=== PATIENT | male | born 1965 | race Caucasian/White ===

== ENCOUNTER 2016-04-11 20:42 | Emergency (ER) | payer BC ==
[2016-04-11 21:36] VITALS: PULSE 78
[2016-04-11] MEDS ORDERED: KETOROLAC 30 MG/ML 1 ML VIAL IVP STA (21:41)
--- NOTE | 2016-04-11 21:44 | ED ---
General Adult HPI - General Chief complaint: Back Pain/Injury Stated complaint: Back Pain Time Seen by Provider: 04/11/16 21:33 Source: patient, RN notes reviewed Mode of arrival: ambulatory Limitations: no limitations - History of Present Illness Initial comments: Patient is a pleasant 50-year-old male presenting to the emergency Department with left thoracic back discomfort. Onset of symptoms was just a couple of hours ago. Patient does have a recent diagnosis of bronchitis. Patient just finished antibiotics and steroids for this today. Patient did have similar symptoms around a year ago and was diagnosed with pleurisy at that time. Patient's discomfort is beneath the left scapula. Discomfort is positional and also increases with deep breaths. Patient denies any dyspnea. No anterior chest discomfort. No leg pain or leg swelling. No fever. - Related Data Home Medications Medication Instructions Recorded Confirmed Citalopram Hydrobromide [CeleXA] 40 mg PO DAILY 06/08/15 04/11/16 Fluticasone/Salmeterol [Advair 1 inhalation PO RT-BID 06/08/15 04/11/16 250-50 Diskus] Montelukast [Singulair] 10 mg PO DAILY 06/08/15 04/11/16 Albuterol Inhaler [Ventolin Hfa 2 puff INHALATION RT-Q6H PRN 06/09/15 04/11/16 Inhaler] Fluticasone Nasal [place] [Flonase 1 spray EA NOSTRIL DAILY PRN 06/09/15 04/11/16 Nasal [place]] Ipratropium Nebulized [Atrovent 0.5 mg INHALATION RT-Q6H PRN 06/09/15 04/11/16 Nebulized] Omeprazole [PriLOSEC] 20 mg PO AC-BRKFST 06/09/15 04/11/16 Previous Rx's Medication Instructions Recorded Ipratropium-Albuterol Nebulize 3 ml INHALATION RT-QID #120 06/11/15 [Duoneb 0.5 mg-3 mg/3 ml Soln] ampul.neb predniSONE 0 mg PO DIRECTED #30 tab 06/11/15 Allergies Allergy/AdvReac Type Severity Reaction Status Date / Time No Known Allergies Allergy Verified 06/09/15 13:22 Review of Systems ROS Statement: Those systems with pertinent positive or pertinent negative responses have been documented in the HPI. ROS Other: All systems not noted in ROS Statement are negative. Constitutional: Denies: fever Eyes: Denies: eye pain ENT: Denies: ear pain Respiratory: Reports: cough. 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 Absent: chest wall tenderness Cardiovascular Exam: Present: regular rate, normal rhythm GI/Abdominal exam: Present: soft. Absent: tenderness Extremities exam: Present: normal inspection. Absent: pedal edema, calf tenderness Back exam: Present: tenderness (Mild tenderness beneath the left scapula and above the left CVA.) Neurological exam: Present: alert Psychiatric exam: Present: normal affect, normal mood Skin exam: Absent: rash Course Vital Signs 04/11/16 04/11/16 20:43 21:35 Temperature 97.3 F L 97.9 F Pulse Rate 83 78 Respiratory 18 18 Rate Blood Pressure 185/107 148/72 O2 Sat by Pulse 100 98 Oximetry Medical Decision Making - Medical Decision Making Patient examined and resting comfortably in bed. Patient symptom-free following Toradol. comfortable discharge. Patient updated on results and need for follow-up. - Lab Data Result diagrams: 04/11/16 23:00 04/11/16 23:00 Lab Results 04/11/16 04/11/16 04/11/16 Range/Units 23:00 23:00 23:00 WBC 13.8 H (3.8-10.6) k/uL RBC 5.18 (4.30-5.90) m/uL Hgb 14.5 (13.0-17.5) gm/dL Hct 42.7 (39.0-53.0) % MCV 82.4 (80.0-100.0) fL MCH 27.9 (25.0-35.0) pg MCHC 33.9 (31.0-37.0) g/dL RDW 13.2 (11.5-15.5) % Plt Count 287 (150-450) k/uL Neutrophils % 62 % Lymphocytes % 26 % Monocytes % 10 % Eosinophils % 1 % Basophils % 1 % Neutrophils # 8.5 H (1.3-7.7) k/uL Lymphocytes # 3.6 (1.0-4.8) k/uL Monocytes # 1.3 H (0-1.0) k/uL Eosinophils # 0.1 (0-0.7) k/uL Basophils # 0.1 (0-0.2) k/uL PT 10.3 (9.0-12.0) sec INR 1.0 (<1.1) APTT 21.6 L (22.0-30.0) sec D-Dimer <0.17 (<0.60) mg/L FEU Sodium 142 (137-145) mmol/L Potassium 4.0 (3.5-5.1) mmol/L Chloride 104 (98-107) mmol/L Carbon Dioxide 28 (22-30) mmol/L Anion Gap 10 mmol/L BUN 28 H (9-20) mg/dL Creatinine 0.80 (0.66-1.25) mg/dL Est GFR (MDRD) Af Amer >60 (>60 ml/min/1.73 sqM) Est GFR (MDRD) Non-Af >60 (>60 ml/min/1.73 sqM) Glucose 107 H (74-99) mg/dL Calcium 9.8 (8.4-10.2) mg/dL Total Bilirubin 0.5 (0.2-1.3) mg/dL AST 32 (17-59) U/L ALT 61 (21-72) U/L Alkaline Phosphatase 58 (38-126) U/L Total Protein 6.4 (6.3-8.2) g/dL Albumin 3.9 (3.5-5.0) g/dL - Radiology Data Radiology results: image reviewed (Chest x-ray shows no acute process) Disposition Clinical Impression: Pleurisy Disposition: HOME SELF-CARE Condition: Stable Instructions: Pleurisy (ED), Thoracic Back Strain (ED) Additional Instructions: Please follow-up with your doctor in the beginning of the week. Return for difficulty breathing, increased pain, fevers, worsening symptoms or other concerns. Referrals: Colton Cortez MD [Primary Care Provider] - 1-2 days
--- NOTE | 2016-04-11 22:51 | XR ---
EXAMINATION TYPE: XR chest 2V DATE OF EXAM: 04/11/2016 10:44 PM COMPARISON: 06/09/2015 HISTORY: Bronchitis. Chest pain TECHNIQUE: Frontal and lateral views of the chest are obtained. FINDINGS: Heart and mediastinum are normal. Lungs are clear. Diaphragm is normal. Bony thorax and so ft tissues appear normal. IMPRESSION: Normal chest. There is improved inspiration compared to old exam. There is clearing of m ild atelectasis at right lung base compared to old exam.
[2016-04-11 23:06] LABS: Basophils # (A) 0.1 k/uL (0-0.2); Basophils % (A) 1 %; CHCM 35.4; Eosinophils # (A) 0.1 k/uL (0-0.7); Eosinophils % (A) 1 %; HCT 42.7 % (39.0-53.0); HDW 2.71; HGB 14.5 gm/dL (13.0-17.5); Luc # (Auto) 0.15; Luc % (Auto) 1; Lymphocytes # (A) 3.6 k/uL (1.0-4.8); Lymphocytes % (A) 26 %; MCH 27.9 pg (25.0-35.0); MCHC 33.9 g/dL (31.0-37.0); MCV 82.4 fL (80.0-100.0); Mean Platelet Volume 7.2; Monocytes # (A) 1.3 k/uL (0-1.0); Monocytes % (A) 10 %; Neutrophils # (A) 8.5 k/uL (1.3-7.7); Neutrophils % (A) 62 %; RBC 5.18 m/uL (4.30-5.90); RDW 13.2 % (11.5-15.5); WBC 13.8 k/uL (3.8-10.6); WBC (Perox) 14.16
[2016-04-11 23:15] LABS: ALT 61 U/L (21-72); AST 32 U/L (17-59); Alkaline Phosphatase 58 U/L (38-126); Anion Gap 10 mmol/L; Blood Urea Nitrogen 28 mg/dL (9-20); Calcium 9.8 mg/dL (8.4-10.2); Carbon Dioxide 28 mmol/L (22-30); Chloride 104 mmol/L (98-107); Glucose 107 mg/dL (74-99); Non-African American GFR(MDRD) >60 (>60 ml/min/1.73 sqM); Sodium 142 mmol/L (137-145); Total Bilirubin 0.5 mg/dL (0.2-1.3); Total Protein 6.4 g/dL (6.3-8.2)
[2016-04-11 23:19] LABS: Prothrombin Time 10.3 sec (9.0-12.0)
[2016-04-11 23:30] LABS: Partial Thromboplastin Time 21.6 sec (22.0-30.0)
[2016-04-12 00:08] VITALS: BP 128/78; RESP 20; TEMP 36.8
== END 2016-04-12 00:07 | disposition home or self-care (01) ==
LOC: EC 20:42
DX: R09.1 Pleurisy (principal); Z79.899 Other long term (current) drug therapy; F32.9 Major depressive disorder, single episode, unspecified; J45.909 Unspecified asthma, uncomplicated; Z87.891 Personal history of nicotine dependence; Z79.51 Long term (current) use of inhaled steroids
CPT/HCPCS: 36415; 85379; 80053; 85025; 85610; 85730; 71020; 99283; 96374; J1885

== ENCOUNTER 2017-05-31 17:41 | Emergency (ER) | payer BC ==
[2017-05-31 18:21] VITALS: BP 139/86; PULSE 89; RESP 20; TEMP 97.9
[2017-05-31] MEDS ORDERED: DIPH,PERTUS(ACELL)TETVAC-LF 0.5 ML VIAL IM ONE (18:28)
--- NOTE | 2017-05-31 18:30 | ED ---
Wound/Laceration HPI - General Chief Complaint: Wound/Laceration Stated Complaint: RT PINKIE FINGER INJURY Time Seen by Provider: 05/31/17 18:27 Source: patient, RN notes reviewed Mode of arrival: ambulatory Limitations: no limitations - History of Present Illness Initial Comments: 52-year-old male presents emergency Department chief complaint right hand fifth digit injury. Patient states his playing tennis states that he went over to drink water going up the steps she tripped falling forward. Patient states they he felt some discomfort to his fifth digit no other laceration. Patient feels that he can see the bone. Patient denies any decreased range of motion. Denies any paresthesias. Patient is unsure when his last tetanus was. Denies any other injuries no head injury no loss conscious. - Related Data Home Medications Medication Instructions Recorded Confirmed Citalopram Hydrobromide [CeleXA] 40 mg PO DAILY 06/08/15 04/11/16 Fluticasone/Salmeterol [Advair 1 inhalation PO RT-BID 06/08/15 04/11/16 250-50 Diskus] Montelukast [Singulair] 10 mg PO DAILY 06/08/15 04/11/16 Albuterol Inhaler [Ventolin Hfa 2 puff INHALATION RT-Q6H PRN 06/09/15 04/11/16 Inhaler] Fluticasone Nasal [place] [Flonase 1 spray EA NOSTRIL DAILY PRN 06/09/15 04/11/16 Nasal [place]] Ipratropium Nebulized [Atrovent 0.5 mg INHALATION RT-Q6H PRN 06/09/15 04/11/16 Nebulized] Omeprazole [PriLOSEC] 20 mg PO AC-BRKFST 06/09/15 04/11/16 Previous Rx's Medication Instructions Recorded Ipratropium-Albuterol Nebulize 3 ml INHALATION RT-QID #120 06/11/15 [Duoneb 0.5 mg-3 mg/3 ml Soln] ampul.neb predniSONE 0 mg PO DIRECTED #30 tab 06/11/15 Allergies Allergy/AdvReac Type Severity Reaction Status Date / Time No Known Allergies Allergy Verified 05/31/17 18:20 Review of Systems ROS Statement: Those systems with pertinent positive or pertinent negative responses have been documented in the HPI. ROS Other: All systems not noted in ROS Statement are negative. 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 Absent: tenderness, meningismus, lymphadenopathy Respiratory exam: Present: normal lung sounds bilaterally. Absent: respiratory distress, wheezes, rales, rhonchi, stridor Cardiovascular Exam: Present: regular rate, normal rhythm, normal heart sounds. Absent: systolic murmur, diastolic murmur, rubs, gallop, clicks Extremities exam: Present: other (Right hand fifth digit there is a laceration on the volar surface patient has full range of motion neurovascular intact there is mild active bleeding) Skin exam: Present: warm, dry Course Vital Signs 05/31/17 18:18 Temperature 97.9 F Pulse Rate 89 Respiratory 20 Rate Blood Pressure 139/86 O2 Sat by Pulse 97 Oximetry Procedures - Laceration Laceration #1 Consent Obtained: verbal consent Indication: laceration Site: hand (Right hand fifth digit) Size (cm): 2 Description: linear Depth: simple, single layer Anesthetic Used: lidocaine 1% Anesthesia Technique: local infiltration Amount (mls): 3 Pre-repair: wound explored, irrigated extensively, deep structures intact Type of Sutures: nylon Size of Sutures: 4-0 Number of Sutures: 5 Technique: simple, interrupted Patient Tolerated Procedure: well, no complications Medical Decision Making - Medical Decision Making 52-year-old male presented to harm chief complaint laceration to his finger. X- ray shows no acute abnormality. Patient's laceration was closed using 5 sutures. Patient tolerated well no compilations. Patient has full range of motion full-strength. Patient's tetanus was updated Disposition Clinical Impression: Laceration of finger of right hand Disposition: HOME SELF-CARE Condition: Stable Instructions: Finger Laceration (ED) Additional Instructions: Have sutures removed in 10 days.Please return to the Emergency Department if symptoms worsen or any other concerns. Referrals: None,Stated [Primary Care Provider] - 1-2 days Time of Disposition: 19:15
--- NOTE | 2017-05-31 19:02 | XR ---
EXAMINATION TYPE: XR finger RT DATE OF EXAM: 05/31/2017 COMPARISON: NONE HISTORY: Laceration and pain TECHNIQUE: 3 views FINDINGS: There is mild spurring at the DIP joint of the little finger. I see no fracture nor disloca tion. There is no sign of a foreign body. IMPRESSION: No acute abnormality of the right middle finger.
== END 2017-05-31 19:25 | disposition home or self-care (01) ==
LOC: EC 17:41
DX: S61.216A Laceration without foreign body of right little finger without damage to nail, initial encounter (principal); J45.909 Unspecified asthma, uncomplicated; F32.9 Major depressive disorder, single episode, unspecified; Z87.891 Personal history of nicotine dependence; Z79.51 Long term (current) use of inhaled steroids; Z79.899 Other long term (current) drug therapy; Z23 Encounter for immunization; W01.0XXA Fall on same level from slipping, tripping and stumbling without subsequent striking against object, initial encounter; Y93.89 Activity, other specified; Y92.008 Other place in unspecified non-institutional (private) residence as the place of occurrence of the external cause
CPT/HCPCS: 12001; 90471; 90715; 99283

== ENCOUNTER → 2020-10-10 | Outpatient (CLI) | payer BC ==
[2020-10-10 11:24] LABS: HCT 47.7 % (39.6-50.0); HGB 15.6 g/dL (13.0-17.0); MCH 27.9 pg (27.0-32.0); MCHC 32.7 g/dL (32.0-37.0); MCV 85.2 fL (80.0-97.0); Mean Platelet Volume 10.4 fL (9.5-12.2); Platelet Count 291 X 10*3/uL (140-440); RDW 13.3 % (11.5-14.5); WBC 5.45 X 10*3/uL (4.50-10.00)
[2020-10-10 15:40] LABS: African American GFR (CKD) 77.9 (60.0-200.0); Albumin 4.6 g/dL (3.80-4.90); Albumin/Globulin Ratio 1.92 (1.60-3.17); Anion Gap 8.6 mmol/L (4.00-12.00); BUN/Creat Ratio 17.5 Ratio (12.00-20.00); Calcium 9.8 mg/dL (8.7-10.3); Carbon Dioxide 25.4 mmol/L (21.6-31.8); Chol/HDL Ratio 6.37; Globulin 2.4 g/dL (1.6-3.3); LDL Cholesterol,Calculated 162.6 mg/dL (0.0-131.0); Non-African American GFR(CKD) 67.2 (60.0-200.0); Potassium 4.6 mmol/L (3.5-5.5); VLDL Calculation 25.4 mg/dL (5.00-40.00)
[2020-10-10 15:51] LABS: Folate, Serum 9.1 ng/mL; Prostate Specific Antigen 0.9 ng/mL (0.0-3.5)
== END | disposition home or self-care (01) ==
LOC: LABWHC1 07:32
PROVIDERS: ATTEND Internal Medicine
DX: R53.83 Other fatigue (principal); E66.9 Obesity, unspecified; F52.21 Male erectile disorder; E55.9 Vitamin D deficiency, unspecified
CPT/HCPCS: 36415; 80053; 80061; 82306; 82607; 82746; 84153; 84402; 84403; 84443; 85027

== ENCOUNTER → 2021-03-20 | Outpatient (CLI) | payer BC ==
[~2021-03-20] MED LIST: CASIRIVIMAB (REGN10933) (EUA) 600 MG, IMDEVIMAB (REGN10987) (EUA) 600 MG in SODIUM CHLO... IVPB ONE; SODIUM CHLORIDE 0.9% 50 ML IVPB ONE; SODIUM CHLORIDE 0.9% 500 ML 500 ML in EMPTY BAG 1 BAG IV PRN
== END | disposition home or self-care (01) ==
LOC: PROCWHC3 08:00
PROVIDERS: ATTEND Internal Medicine
DX: U07.1 COVID-19 (principal)